=== PATIENT | male | born 1990 | race Caucasian/White ===

== ENCOUNTER → 2024-07-02 14:04 | Outpatient (REF) | payer BC, SELFPAY | LOC: HWEVLT 14:04 | PROVIDERS: ATTENDING PHYSICIAN Radiology Diagnostic Radiology | DX: I83.891 Varicose veins of right lower extremity with other complications (principal) | CPT/HCPCS: 93971 ==

== ENCOUNTER → 2024-08-06 08:06 | Outpatient (REF) | payer BC, SELFPAY | LOC: HWEVLT 08:06 | PROVIDERS: ATTENDING PHYSICIAN Radiology Diagnostic Radiology | DX: I83.891 Varicose veins of right lower extremity with other complications (principal) | CPT/HCPCS: 36478; C1769 ==

== ENCOUNTER → 2024-08-22 13:01 | Outpatient (REF) | payer BC, SELFPAY | LOC: HWEVLT 13:01 | PROVIDERS: ATTENDING PHYSICIAN Radiology Vascular & Interventional Radiology | DX: I83.891 Varicose veins of right lower extremity with other complications (principal) | CPT/HCPCS: 93971 ==